=== PATIENT | female | born 1955 | race Caucasian/White ===

== ENCOUNTER 2019-10-27 12:48 | Observation (INO) | payer MEDICARE ==
[2019-10-27] VITALS (8 sets, daily range): BP systolic 126–161; BP diastolic 40–89; PULSE 59–76; TEMP 97.2–98.1
[~2019-10-27] VITALS: Ht 167.6 cm; Wt 66.5 kg
[2019-10-27] MEDS ORDERED: MS CONTIN 330 MG/TAB PO (15:00)
[2019-10-27] MEDS ORDERED: LYRICA200 MG PO (15:01)
[2019-10-27] MEDS ORDERED: MSIR30 MG PO (15:01)
[2019-10-27] MEDS ORDERED: CYMBALTA 30MG30 MG PO (15:02)
[2019-10-27] MEDS ORDERED: ABILIFY5 MG PO (15:02)
[2019-10-27] MEDS ORDERED: IBU800 M1 PO (15:03)
[2019-10-27] MEDS ORDERED: SYNTHROID0.125 MG/T PO (15:03)
[2019-10-27] MEDS ORDERED: NEXIUM 40MG40 MG PO (15:04)
[2019-10-27] MEDS ORDERED: MULTIPLE VITAMI1 TA5 PO (15:04)
[2019-10-27] MEDS ORDERED: B-12 250 MCG PO (15:05)
[2019-10-27] MEDS ORDERED: MIRALAX PA17 GM/Dose PO (15:06)
[2019-10-27] MEDS ORDERED: PRED MILD OP (15:07)
--- NOTE | 2019-10-27 15:30 | NUR ---
Patient talkative, no s/s pain visualized. Able to ambulate to bathroom with no difficulty. Daughter at bedside, routinely interrupts conversation with patient to ask her if she is having any pain. Patient does not appear in pain but does eventually state pain to LLQ with prompting from daughter. Patient reports no urinary burning, frequency or hesitancy. Several times daughter is noted to be sitting on window seat in room, leaning forward and swaying with eyes closed, upon prompted awake, unable to make complete sentences and answers questions. Patient states "she's just so tired." Ernesto Core Machine Tender notified.
--- NOTE | 2019-10-27 17:00 | NUR ---
Patient to surgery with surgical staff at this time. Daughter remains in room.
--- NOTE | 2019-10-27 18:00 | NUR ---
Dr Silveira here to talk to patients daughter regarding procedure. Daughter asleep in room, awakens with great difficulty, unable to make conversation. Half Sole Fitter notified of above per Dr Silveira. 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 Half Sole Fitter will notifiy [facility] [employer] in a.m. about above and follow up.
--- NOTE | 2019-10-27 19:24 | NUR ---
Patient returns from procedure. Assessment unchanged. Daughter remains at bedside.
--- NOTE | 2019-10-27 20:30 | NUR ---
Pt. sitting up in bed with daughter at bedside. Pt. is A&OX3, assessment complete. INT to lt. ac patent. Pt. denies pain at this time. Pt. has met discharge criteria. Discharge paperwork reviewed with pt. and daughter. Pt. given home med rec, health summary, kidney stone education, and follow up information. Pt. and daughter voice understanding. INT discontinued from lt. . Pt. instructed to call when ready to leave.
--- NOTE | 2019-10-27 20:40 | NUR ---
Pt. daughter called to inform this nurse that they are ready to go. Pt. voiced that her pain increased, gave pain meds per orders. Pt. escorted out by wheel chair by this nurse. Pt. and daughter riding home with daughters sig. other. Sig. other is A&O, no signs of intoxication, or being under the infuence of drugs. The sig. other is walking straight, no slurring of speech, and does not have glazed or droopy eyes.
--- NOTE | 2019-11-02 14:27 | NUR ---
Yield Engineer made report to Adult Protective Services (intake #[id number]) in reference to concerns raised by nursing staff about medications and caregiver behavior.
== END 2019-10-27 20:48 | disposition home or self-care (01) ==
LOC: SURG 13:28
PROVIDERS: ADMIT Urology
DX: N20.1 Calculus of ureter (principal); K21.9 Gastro-esophageal reflux disease without esophagitis; M47.9 Spondylosis, unspecified; F32.9 Major depressive disorder, single episode, unspecified; E03.9 Hypothyroidism, unspecified; G89.29 Other chronic pain; Z79.899 Other long term (current) drug therapy; Z82.49 Family history of ischemic heart disease and other diseases of the circulatory system; Z83.6 Family history of other diseases of the respiratory system; Z85.038 Personal history of other malignant neoplasm of large intestine; Z88.1 Allergy status to other antibiotic agents; Z88.5 Allergy status to narcotic agent; Z97.8 Presence of other specified devices
CPT/HCPCS: G0378; J0690; J1100; J1885; J2270; J2405; J2704; J3010; J7030; J7120; Q9967